=== PATIENT | female | born 1930 | race Caucasian/White ===

== ENCOUNTER → 2016-07-05 | Day surgery (SDC) | payer MEDICARE, OTHER ==
[~2016-07-05] MED LIST: ACIPHEX20 MG; ADVAIR 250-501 EAC1 INH; AMIODARONE HCL100 MG PO; ASPIRIN81 M1 PO; ASPIRIN81 M2 PO; CARAFATE1 G PO; ELIQUIS2.5 MG PO; FISH OIL 1,0001 CA2 PO; FLONASE 0.05% N16 G1; FLONASE ALLERG9.9 ML; KETOPROFEN PO; MACROBID 100 M100 MG; METOPROLOL SUCC25 MG PO; MIRALAX17 GM PO; MIRALAX255 GM PO; MULTI VITAMIN1 EACH PO; MULTI-VITAMIN1 EAC1 PO; MULTI-VITAMIN1 TAB; NEXIUM PO; NEXIUM20 MG PO; NORVASC PO; OCUVITE TABLET1 TAB PO; PRAVACHOL PO; RAPAFLO8 MG PO; STOOL SOFTENER240 MG PO; SYNTHROID PO; SYNTHROID25 MCG PO; TOPROL XL PO; TYLOX 5/500 CAP1 CAP; VITAMIN D 4001 UDTAB PO; VITAMIN D1000 UNI1 PO; VITAMIN D1000 UNIT PO; ZETIA PO
--- NOTE | ~2016-07-05 | OR ---
Unit #: [id number] #: [id number] Patient: ABDIAZIZ MURRY [id number] [facility]. [id number] [facility]. [place], [place] [address] [id number] O MR#: [id number] NAME: ABDIAZIZ MURRY ROOM: Date of Procedure: 07/05/2016 Admission Date: 07/05/2016 Surgeon: Leonel Jose Jr., M.D. : 1930 Attending Physician: Leonel Jose Jr., M.D. Primary Care Physician: Lorna Pickering M.D. OPERATIVE REPORT INDICATIONS FOR PROCEDURE The patient is an 85-year-old white female, who has been having problems with some abdominal pain with progressive constipation. It was felt she could have some obstruction present. She had a colonoscopy 2 years ago, which was normal. She is brought in this time for colonoscopy at her request. She understands procedure including risks and consents. She has had her prep at home. PREOPERATIVE DIAGNOSES Possible colonic obstruction with progressive constipation. POSTOPERATIVE DIAGNOSES Very tortuous colon with few diverticula in the left colon, otherwise no other abnormalities to the cecum. ANESTHESIA MAC anesthesia. PROCEDURE PERFORMED Flexible colonoscopy to the cecum. DESCRIPTION OF PROCEDURE The patient was positioned in Mckeon position with left side down. After being given MAC anesthesia, digital rectal examination was performed, which revealed no palpable mass or tenderness. No blood or stool in the rectal ampulla. There was some spasm of the sphincteric muscles. The Olympus colonoscope was advanced into the anal canal up the rectum and retroflexed down to the area of the anorectal region. There was no evidence of any fissures. No significant internal hemorrhoids. The scope was then straightened and advanced up the rectosigmoid and in the sigmoid and descending colon areas, where a few diverticula without evidence of diverticulitis. The scope was then advanced around the splenic flexure and the transverse colon, around hepatic flexure and ascending colon, down in the area of the cecum. The light from the tip of the scope could be seen transilluminating through right lower quadrant abdominal wall area. Multiple attempts advancing the scope up the distal ileum were unsuccessful. The scope was slowly removed. There were no tumors, no polyps, cancer, or AVMs. No evidence of any colitis or acute diverticulitis. The caliber of the colon appeared normal throughout except for noting significant tortuosity of the colon throughout the entire length, which could explain her constipation. The scope was removed. The patient tolerated the procedure well and discharged in Unit #: [id number] #: [id number] Patient: ABDIAZIZ MURRY satisfactory condition. Dictated by... Leonel Jose Jr., MRitu. RENY/tony TD: 07/06/2016 02:43 JOB #: [id number] OPERATIVE REPORT Page 1 of 1 X Leonel Jose MD X PROCEDURE OPERATIVE NOTE
== END | disposition home or self-care (01) ==
LOC: COPS 12:31
DX: K59.09 Other constipation (principal); K57.30 Diverticulosis of large intestine without perforation or abscess without bleeding; K56.2 Volvulus; K21.9 Gastro-esophageal reflux disease without esophagitis; I48.0 Paroxysmal atrial fibrillation; I10 Essential (primary) hypertension; E03.9 Hypothyroidism, unspecified; M16.9 Osteoarthritis of hip, unspecified; F41.9 Anxiety disorder, unspecified; J44.9 Chronic obstructive pulmonary disease, unspecified; E78.5 Hyperlipidemia, unspecified; Z88.5 Allergy status to narcotic agent; Z88.8 Allergy status to other drugs, medicaments and biological substances; Z87.442 Personal history of urinary calculi; Z80.1 Family history of malignant neoplasm of trachea, bronchus and lung; Z91.048 Other nonmedicinal substance allergy status; Z79.01 Long term (current) use of anticoagulants; Z79.51 Long term (current) use of inhaled steroids; Z79.899 Other long term (current) drug therapy; Z90.49 Acquired absence of other specified parts of digestive tract; Z90.13 Acquired absence of bilateral breasts and nipples; Z98.890 Other specified postprocedural states

== ENCOUNTER → 2016-09-05 | Outpatient (CLI) | payer MEDICARE, OTHER ==
--- NOTE | ~2016-09-05 | MR113 ---
[facility] A Service of [facility] RADIOLOGY TEXT RESULTS PATIENT: ABDIAZIZ MURRY LOCATION: [facility] : 32 UNIT #: [id number] AGE: [address]: Lorna Pickering MD SEX: F ORDER DR: [id number] [place] [id number] O MR#: [id number] Acc #: [id number] NAME: ABDIAZIZ MURRY. : 1930 SEX: F STUDY DATE/TIME: 09/05/2016 10:08 UNIT: [facility] ROOM: STUDY DESCRIPTION: MR Lumbar Wo Contrast Attending Physician: Lorna Pickering M.D. Referring Physician: Lorna Pickering M.D. Ordering Physician: Lorna Pickering M.D. Primary Care Physician: Lorna Pickering M.D. MRI CENTER REPORT This report is preliminary unless electronic signature is present. EXAM MRI lumbar spine without HISTORY 85-year-old patient complaining of worsening low back pain, left-sided sciatica for 10 weeks. Patient failed physical therapy and conservative medical management. Known degenerative disc disease. COMMENTS MRI of the lumbar spine performed without contrast using routine 1.5T wide-bore imaging technique. Comparison study is from 09/16/2009. There is upper lumbar dextroconvex scoliosis measuring about 16 degrees at L2-3. The intervertebral discs are desiccated in general and loss of intervertebral disc height is most severe at the L3-4 level. Bone marrow signal intensity is unremarkable allowing for some marrow endplate degenerative changes which are mixed, mostly type 2 but type 1 changes are present at L5-S1. The conus medullaris terminates at L1 and is normal. There is grade 1 anterolisthesis of L4 on L5 by about 5.0 mm secondary to severe facet arthritis. At L1-2, there is iizi-pu-hkshqnef bilateral facet degenerative change. There is concentric disc bulge with a broad posterior protrusion more prominent to the bilateral foramina, left greater than right. There is no canal stenosis. There is mild mass effect on the left greater than right lateral recess. There is mild bilateral inferior foraminal narrowing. At L2-3, there is mild bilateral facet degenerative change with concentric disc bulging and endplate spondylosis. Superimposed protrusion seen left mpvgkzsjph-pz-ogklqbvnblumnn location with focal mass effect on the left lateral recess expected location left L3 root. No significant central canal stenosis. There is mild left-sided foraminal narrowing. [facility]. [facility] Service of [facility] RADIOLOGY TEXT RESULTS PATIENT: ABDIAZIZ MURRY LOCATION: [facility] : 31 UNIT #: [id number] AGE: [address]: Lorna Pickering MD SEX: F ORDER DR: At L3-4, there is pnie-pb-ssfvamwr facet degenerative change bilaterally. There is a concentric desiccated disc osteophyte complex with mild central canal stenosis, mild mass effect on the bilateral-lateral recesses. There is also ljbn-af-xyyderah left greater than right side foraminal narrowing. At L4-5, there is xhsukwwb-bg-eafdsr facet arthritis bilaterally which accounts for the anterolisthesis of 4 on 5. There is mass effect upon the right greater than left lateral recess expected location of the L5 roots and there is krar-ul-ldnbyzrl central canal stenosis. There is mild left-side foraminal narrowing. At L5-S1, there is mild left and moderate right-sided facet arthritis with a broad posterior protrusion/extrusion slightly more prominent to the left than right of midline. There is mass effect on the left greater than right lateral recess expected location of the S-1 root and otherwise mild effacement of the anterior thecal sac. There is also qcsv-ct-xggwaemp right greater than left sided foraminal impingement. On comparison to prior study progression of disease noted particularly at the L5-S1 level though there is also milder worsening at L4-5, L3-4. The degenerative disc disease at the 2-3 and 1-2 levels also considerably progressed from prior. There is extrarenal pelvis on the right. Partly seen is what is likely a large left renal cyst apparently increasing in size on comparison to prior study. Suggest correlation with a followup renal ultrasound given increase in size from about 1.7 cm previously to 2.8 cm currently. Suggestion of mild wall thickening on the MRI possibly real, possibly artifactual and also best further assessed with a follow-up ultrasound. IMPRESSION 1. Multilevel lumbar degenerative disease as detailed above and there is significant progression of disease since the study from 09/16/2009. Please refer to the adqpl-ug-zcedp description of findings and correlate with radicular symptoms since there are multiple candidates for source of pain. Canal stenosis is most prominent at the L4-5 level where there is anterolisthesis of L4 on L5 secondary to facet arthritis. 2. Increasing cystic left renal mass. It is probably a simple cyst but given its increasing size and the possibility of some mild wall thickening, suggest correlation with a followup renal ultrasound for better characterization. 1. Dictated by... Clarice Rhoades M.D. THIS IS AN ELECTRONICALLY VERIFIED REPORT [facility]. [facility] A Service of [facility] RADIOLOGY TEXT RESULTS PATIENT: ABDIAZIZ MURRY LOCATION: [facility] : 31 UNIT #: [id number] AGE: [address]: Lorna Pickering MD SEX: F ORDER DR: Clarice Rhoades M.D. at 09/06/2016 4:14 PM SHARRON/herbert TD: 09/06/2016 14:23 JOB #: [id number] MRI CENTER REPORT Page 1 of 1
== END | disposition home or self-care (01) ==
LOC: SMRI 09:42
DX: M51.36 Other intervertebral disc degeneration, lumbar region (principal); M43.16 Spondylolisthesis, lumbar region; M48.06 Spinal stenosis, lumbar region; M46.96 Unspecified inflammatory spondylopathy, lumbar region; N28.1 Cyst of kidney, acquired
CPT/HCPCS: 72148